=== PATIENT | male | born 1995 | race Caucasian/White ===

== ENCOUNTER 2017-10-10 19:26 | Emergency (ER) | payer OTHER ==
[~2017-10-10] VITALS: Ht 180.3 cm; Wt 82.3 kg
[~2017-10-10 19:26] MED LIST: LISD30CA4 PO
[2017-10-10 19:29] VITALS: TEMP 38.1; Ht 180.3 cm; Wt 82.3 kg
[2017-10-10] MEDS ORDERED: AMOX500C3 PO (19:42)
[2017-10-10] MEDS ORDERED: DiphenhydrAMINE HCL 50 MG/ML VIAL IV STA (19:50)
[2017-10-10] MEDS ORDERED: ACETAMINOPHEN 500 MG TAB PO STA (19:50)
[2017-10-10] MEDS ORDERED: KETOROLAC TROMETHAMINE 30 MG/ML VIAL IV STA (19:50)
[2017-10-10] MEDS ORDERED: SODIUM CHLORIDE 0.9% 1000ML 1,000 ML IV STA (19:50)
--- NOTE | 2017-10-10 19:52 | EMERGENCY ROOM VISIT NOTE ---
History Report prepared by Jordi: David Locke Under the Supervision of: Dr. Armaan Medina M.D. First contact with patient: 19:32 Chief Complaint: FEVER Stated Complaint: FEVER, HEADACHE,PAIN IN BACK HURTS WHEN WALKING History of Present Illness The patient is a 22 year old male who presents to the ED with a cc of a constant fever beginning today. Positive for nausea, body ache, and a headache when he moves his head too quickly. Negative for back pain, cough, vomiting, urinary problems, and unusual discharge. The patient states that his current symptoms feel similar to when he had mono 6 years ago. He notes that he took Advil with no relief to his symptoms. He denies receiving a flu shot as well as having any known sick contacts. He reports that he is currently taking amoxicillin for an infected wisdom tooth. Source of History: patient Onset: today Position: other (global) Quality: other (fever) Timing: constant Associated Symptoms: + headache, + nausea, No cough, No vomiting, No back pain, No urinary symptoms Note: he also complains of a body ache. he denies any unusual discharge Review of Systems See HPI for pertinent positives and negatives. A total of ten systems were reviewed and were otherwise negative. Past Medical & Surgical Medical Problems: (1) No chronic problems Family History No pertinent family history stated. Social History Smoking Status: Never Smoker Marital Status: single Housing Status: lives with roommate Occupation Status: [employer] Current/Historical Medications Scheduled Amoxicillin (Amoxil), 500 MG PO Q8 Lisdexamfetamine Dimesylate (Vyvanse), 30 MG PO DAILY Allergies Coded Allergies: Sulfa Antibiotics (Unverified Allergy, Unknown, HIVES, 10/10/17) Physical Exam Vital Signs Date Time Temp Pulse Resp B/P (MAP) Pulse Ox O2 Delivery O2 Flow Rate FiO2 10/10/17 21:55 82 15 129/67 96 10/10/17 20:29 73 16 125/70 100 Room Air 10/10/17 19:29 38.1 85 18 118/71 97 Room Air Physical Exam GENERAL: Awake, alert, well-appearing, NAD HENT: Normocephalic, atraumatic. Posterior oropharynx clean, impacted right mandibular wisdom tooth without pain or fluctuance. EYES: Normal conjunctiva. Sclera non-icteric. NECK: Supple. No nuchal rigidity. FROM. No signs of meningismus. RESPIRATORY: CTAB, no rhonchi, wheezing, crackles CARDIAC: RRR, no MRG ABDOMEN: Soft, NTND, BS+ MSK: No chest wall TTP, no LE edema. No CVA tenderness to palpation. NEURO: GCS 15, CN 2-12 intact, moves all 4s on command SKIN: No rash or jaundice noted. Medical Decision & Procedures ER Provider Diagnostic Interpretation: Radiology results as stated below per my review and radiologist interpretation: CHEST ONE VIEW PORTABLE FINDINGS: Cardiomediastinal and hilar silhouettes are within normal limits. There is no pneumothorax, pleural effusion, focal airspace consolidation or overt pulmonary edema. Bones of the chest appear grossly intact. IMPRESSION: No acute cardiopulmonary process. The above report was generated using voice recognition software. It may contain grammatical, syntax or spelling errors. Electronically signed by: Kin Pack M.D. 10/10/2017 8:57 PM Laboratory Results 10/10/17 20:05 Red Blood Count 4.54, Mean Corpuscular Volume 89.9, Mean Corpuscular Hemoglobin 31.3, Mean Corpuscular Hemoglobin Concent 34.8, Mean Platelet Volume 10.5, Neutrophils (%) (Auto) 63.4, Lymphocytes (%) (Auto) 23.6, Monocytes (%) (Auto) 11.9, Eosinophils (%) (Auto) 0.6, Basophils (%) (Auto) 0.3, Neutrophils # (Auto ) 4.12, Lymphocytes # (Auto) 1.53, Monocytes # (Auto) 0.77, Eosinophils # (Auto ) 0.04, Basophils # (Auto) 0.02 10/10/17 20:05 Test 10/10/17 20:05 10/10/17 20:25 White Blood Count 6.49 K/uL (4.8-10.8) Red Blood Count 4.54 M/uL (4.7-6.1) Hemoglobin 14.2 g/dL (14.0-18.0) Hematocrit 40.8 % (42-52) Mean Corpuscular Volume 89.9 fL (80-100) Mean Corpuscular Hemoglobin 31.3 pg (25-34) Mean Corpuscular Hemoglobin Concent 34.8 g/dl (32-36) Platelet Count 222 K/uL (130-400) Mean Platelet Volume 10.5 fL (7.4-10.4) Neutrophils (%) (Auto) 63.4 % Lymphocytes (%) (Auto) 23.6 % Monocytes (%) (Auto) 11.9 % Eosinophils (%) (Auto) 0.6 % Basophils (%) (Auto) 0.3 % Neutrophils # (Auto) 4.12 K/uL (1.4-6.5) Lymphocytes # (Auto) 1.53 K/uL (1.2-3.4) Monocytes # (Auto) 0.77 K/uL (0.11-0.59) Eosinophils # (Auto) 0.04 K/uL (0-0.5) Basophils # (Auto) 0.02 K/uL (0-0.2) RDW Standard Deviation 40.7 fL (36.4-46.3) RDW Coefficient of Variation 12.3 % (11.5-14.5) Immature Granulocyte % (Auto) 0.2 % Immature Granulocyte # (Auto) 0.01 K/uL (0.00-0.02) Anion Gap 8.0 mmol/L (3-11) Est Creatinine Clear Calc Drug Dose 127.2 ml/min Estimated GFR () 127.9 Estimated GFR (Non- 110.4 BUN/Creatinine Ratio 13.8 (10-20) Calcium Level 8.3 mg/dl (8.5-10.1) Total Bilirubin 0.6 mg/dl (0.2-1) Direct Bilirubin 0.1 mg/dl (0-0.2) Aspartate Amino Transf (AST/SGOT) 14 U/L (15-37) Alanine Aminotransferase (ALT/SGPT) 18 U/L (12-78) Alkaline Phosphatase 72 U/L (45-117) Total Protein 7.0 gm/dl (6.4-8.2) Albumin 3.6 gm/dl (3.4-5.0) Lipase 121 U/L (73-393) Monoscreen NEG (NEG) Influenza Type A Antigen Neg for Influ A (NEG) Influenza Type B Antigen Neg for Influ B (NEG) Urine Color YELLOW Urine Appearance CLEAR (CLEAR) Urine pH 7.5 (4.5-7.5) Urine Specific [place] 1.010 (1.000-1.030) Urine Protein NEG (NEG) Urine Glucose (UA) NEG (NEG) Urine Ketones NEG (NEG) Urine Occult Blood NEG (NEG) Urine Nitrite NEG (NEG) Urine Bilirubin NEG (NEG) Urine Urobilinogen NEG (NEG) Urine Leukocyte Esterase NEG (NEG) Laboratory results reviewed by me Medications Administered Medications (Trade) Dose Ordered Sig/Naomy Route Start Time Stop Time Status Last Admin Dose Admin Sodium Chloride 1,000 ml @ 999 mls/hr Q1H1M STAT IV 10/10/17 19:50 10/10/17 20:50 DC 10/10/17 20:03 999 MLS/HR Ketorolac Tromethamine (Toradol Inj) 30 mg NOW STAT IV 10/10/17 19:50 10/10/17 19:53 DC 10/10/17 20:03 30 MG Acetaminophen (Tylenol Tab) 1,000 mg NOW STAT PO 10/10/17 19:50 10/10/17 19:53 DC 10/10/17 20:04 1,000 MG Diphenhydramine HCl (Benadryl Inj) 25 mg NOW STAT IV 10/10/17 19:50 10/10/17 19:53 DC 10/10/17 20:03 25 MG ECG Indication: weakness Rate (beats per minute): 72 Rhythm: normal sinus Findings: T-wave inversion (isolated T-wave inversion in wave three), other ( Normal interval, normal axis, no other STS or TWI inversions) ED Course 1939: The patient was evaluated in room A10. A complete history and physical exam was performed. 2119: I reevaluated and updated the patient. 2224: I reevaluated the patient. Discussed results and discharge instructions: He verbalized understanding and agreement. The patient is ready for discharge. Medical Decision The patient is a 22 year old male who presents to the ED with a cc of a constant fever beginning today. Positive for nausea, body ache, and a headache when he moves his head too quickly. Negative for back pain, cough, vomiting, urinary problems, and unusual discharge. Differential diagnosis: Etiologies such as viral syndrome, otitis, pharyngitis, pneumonia, influenza, meningitis, urinary tract infection, sepsis, bacteremia, as well as others were entertained. Patient was seen and evaluated the bedside. Patient states she's had some body aches along with some fever. Patient states feels similar when he had monobactam [employer]th-grad[employer] which is proximal was 6 years prior. Patient denies any recent travel, antibiotic use or sick contacts. Patient has taken some Motrin but nothing else. Patient denies any alcohol tobacco or drug use. Patient does complain of some mild headache but on exam patient exhibits no signs of meningismus. He has a nonfocal neurologic exam. Patient did have blood work completed along with symptomatic and supportive care. Patient's blood work was fairly unremarkable. Patient had a normal white count. Patient's urinalysis and chest x-ray were negative for acute infection. Patient was feeling much improved. Patient was told to avoid things like alcohol tobacco or drugs. Patient was also told to continue adequate fluid hydration avoid caffeinated beverages. Patient was agreeable with this plan. Patient was deemed suitable for outpatient treatment and follow up. Patient was given strict follow-up, discharge, and return precautions. All questions were answered. Patient was deemed suitable for outpatient follow-up at this time. Patient agreed with the plan of care and was safely discharged home. Medication Reconcilliation Current Medication List: was personally reviewed by me Blood Pressure Screening Patient's blood pressure: Normal blood pressure Blood pressure disposition: Did not require urgent referral Impression Primary Impression: Fever Additional Impression: Viral syndrome Scribe Attestation The scribe's documentation has been prepared under my direction and personally reviewed by me in its entirety. I confirm that the note above accurately reflects all work, treatment, procedures, and medical decision making performed by me. Departure Information Dispostion Home / Self-Care Referrals [facility] (PCP) Forms HOME CARE DOCUMENTATION FORM, IMPORTANT VISIT INFORMATION Patient Instructions ED Fever Control, ED Viral Syndrome, My [facility] Additional Instructions Please return to the emergency department if you have worsening or recurrent symptoms not amenable to at-home treatment. Please call for a follow-up appointment with her primary care physician. Please take your medications as prescribed. If you have other concerns and/or complaints please feel free to also call your primary care physician's office or return the ED for further evaluation, management, and treatment. Please hydrate well and avoid alcohol, tobacco, or drugs. You may take 600 mg Ibuprofen every 6 hours as needed for pain with food for no more than 2 consecutive days. You may take tylenol 1000 mg every 6 hours as needed for pain. You may take motrin and tylenol separately or at the same time. Take your medications as prescribed. If taking an antibiotic consider taking a probiotic and/or eating yogurt, but at the least, please take with food as it can cause upset stomach. You have been examined and treated today on an emergency basis only. This is not a substitute for, or an effort to provide, complete comprehensive medical care. It is impossible to recognize and treat all injuries or illnesses in a single emergency department visit. It is therefore important that you follow up closely with [facility], your PCP, and/or your specialist(s). Call as soon as possible for an appointment. Thank you for your time and consideration. I look forward to speaking with you again soon. Please don't hesitate to call us if you have any questions. Problem Qualifiers Primary Impression: Fever Fever type: unspecified Qualified Codes: R50.9 - Fever, unspecified
[2017-10-10 20:18] LABS: BASO % 0.3 %; BASO ABS # 0.02 K/uL (0-0.2); COMPLETE YES; EOS % 0.6 %; HEMATOCRIT 40.8 % (42-52); IG% 0.2 %; LYMPH % 23.6 %; LYMPH ABS # 1.53 K/uL (1.2-3.4); MEAN CELL VOLUME 89.9 fL (80-100); MEAN CORPUSCULAR HEMOGLOBIN 31.3 pg (25-34); MEAN CORPUSCULAR HGB CONC 34.8 g/dl (32-36); MEAN PLATELET VOLUME 10.5 fL (7.4-10.4); MONO % 11.9 %; NEUT % 63.4 %; PLATELET COUNT 222 K/uL (130-400); RED BLOOD COUNT 4.54 M/uL (4.7-6.1); WHITE BLOOD COUNT 6.49 K/uL (4.8-10.8)
[2017-10-10 20:36] LABS: URINE APPEARANCE CLEAR (CLEAR); URINE BILIRUBIN NEG (NEG); URINE COLOR YELLOW; URINE NITRITE NEG (NEG); URINE PH 7.5 (4.5-7.5); UROBILINOGEN NEG (NEG); ZZUR CULT IF INDIC CLEAN CATCH NO
[2017-10-10 20:37] LABS: BUN/CREATININE RATIO 13.8 (10-20); CALCIUM 8.3 mg/dl (8.5-10.1); CREATININE 0.97 mg/dl (0.60-1.40); POTASSIUM 3.5 mmol/L (3.5-5.1)
[2017-10-10 20:41] LABS: MANUAL MICROSCOPIC REQUIRED? NO; REVIEW REQ? NO
--- NOTE | 2017-10-10 20:58 | DIAGNOSTIC IMAGING REPORT ---
CHEST ONE VIEW PORTABLE HISTORY: 22 years-old Male fever acute fever. COMPARISON: None available TECHNIQUE: Portable upright AP view of the chest FINDINGS: Cardiomediastinal and hilar silhouettes are within normal limits. There is no pneumothorax, pleural effusion, focal airspace consolidation or overt pulmonary edema. Bones of the chest appear grossly intact. IMPRESSION: No acute cardiopulmonary process. The above report was generated using voice recognition software. It may contain grammatical, syntax or spelling errors. Electronically signed by: Kin Pack M.D. 10/10/2017 8:57 PM Dictated Date/Time: 10/10/2017 8:56 PM
[2017-10-10 21:55] VITALS: BP 129/67; PULSE 82; O2SAT 96
== END 2017-10-10 21:57 | disposition home or self-care (01) ==
LOC: C.EDB 19:28 → C.EDC 21:57
DX: R50.9 Fever, unspecified (principal); R69 Illness, unspecified